=== PATIENT | female | born 1970 | race Caucasian/White ===

== ENCOUNTER 2025-09-14 15:08 | Outpatient (AMB) | payer OTHER, SELFPAY ==
--- NOTE | 2025-09-14 15:23 | A.OFFPC_ITS ---
Vital Signs 09/14/25 15:29 Height 5 ft 2.75 in Weight 199 lb 6 oz BMI 35.6 BP 262/133 H Blood Pressure Location Lt brachial Respiration 14 Pulse 75 Pulse Source Pulse Oximeter Temp 97.0 F Temp Source Temporal Artery Scan Pulse Oximetry (%) 99 Oxygen Delivery Method Room Air Intake Visit Reasons: New Patient Rn On Site Required: No Accompanied by: Self / Same As Patient Allergies amoxicillin Allergy (Mild, Verified 09/14/25 15:27) Rash Medication List - Last Reconciled 09/14/25 by Kvng Martinez MD No Known Home Meds Tobacco use date assessed: 09/14/25 Dental Screening Dental Screen Date: 09/14/25 Did you have a dental visit in the last 12 months?: No Did you have a dental problem in the last 6 months where you did not have access to dental care?: No HPI HPI Comments History of Present Illness Details History of Present Illness The patient is a 54 year old female presenting for a general check-up, as she has not seen a doctor since 2011. She reports feeling anxious about the visit. The patient was found to have a blood pressure of 260/33 mmHg on two repeat measurements, leading to a diagnosis of hypertensive urgency. She confirms experiencing associated symptoms including chest pain, shortness of breath, headaches, and vision changes. The patient has a past medical history of high blood pressure and type 2 diabetes, for which she is not on any treatment. She reports a weight loss of over 150 pounds since these diagnoses were made. 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 She has been experiencing neurological issues, including problems with her legs that necessitate the use of a walking stick, and tingling or burning sensations in her feet, suggestive of diabetic neuropathy. In 2009, the patient attempted suicide and underwent a gastric lavage, for which she believes she was placed under general anesthesia. She denies ever smoking regularly and quit occasional use over 15 years ago. She has a history of binge drinking but now reports consuming only a couple of drinks per year, with her last drink being at Thanksgiving. Medical History: - Hypertension, previously diagnosed. - Type 2 diabetes mellitus, previously d iagnosed and untreated. 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 - Toe fracture in 2018. - History of suicide attempt in 2009. - Acid reflux, managed with [id number] nter omeprazole. - History of alcohol abuse (binge drinki ng). Surgical History: - Gastric lavage under anesthesia follow ing a suicide attempt (2009). Medications: - Omeprazole ([id number]) for acid reflux. - Turmeric for knee pain. Family History: - Father: High blood pressure. - Mother: Ovarian cancer. Diagnostic Results: - Vitals: Blood pressure 260/33 mmHg on two repeat measurements. Social History - Employment: The patient is currently u nemployed. - Substance Use: The patient denies ever smoking regularly and quit occasional smoking over 15 years ago. - Alcohol Use: She has a history of chano e drinking, with the last binge in 2018. - Current Alcohol Use: The patient repor ts she now has a couple of drinks per year, never more than two at a time, with her last drink being one at [facility]. - Weight Management: She has a history o f significant weight loss of over 150 pounds. - Functional Status: The patient uses a walking stick. - Housing: She recently moved to the [facility] and lives with a friend. [facility] Medical History (Updated 09/14/25 @ 15:55 by Kvng Martinez MD) Establishing care with new doctor, encounter for Type 2 diabetes mellitus Hypertensive urgency Social History Housing: Apartment (renting a room) Patient Tobacco Use Status: Never used Tobacco e-Cigarette/Vaping Use: Never Used service: No Current occupational status: unemployed Cognitive needs: Yes (walking stick PRN) Hearing needs: No Vision needs: Yes (Rx glasses) Questionnaire PHQ-9 Over the last 2 weeks, how often have you been bothered by any of the following problems? 1. Little interest or pleasure in doing things: several days 2. Feeling down, depressed, or hopeless: more than half the days 3. Trouble falling or staying asleep, or sleeping too much: several days 4. Feeling tired or having little energy: several days 5. Poor appetite or overeating: not at all 6. Feeling bad about yourself - or that you are a failure or have let yourself or your family down: more than half the days 7. Trouble concentrating on things, such as reading the newspaper or watching television: several days 8. Moving or speaking so slowly that other people could have noticed. Or the opposite - being so fidgety or restless that you have been moving around a lot more than usual: not at all 9. Thoughts that you would be better off or of hurting yourself in some way: not at all Total score: 8 Depression Screening Interpretation: Positive Depression Screening Done: Yes 10866 - PHQ-9 Billing: Yes Source: Developed by Drs. Rasta Crawford, Falguni Brown, Carlitos Verdin and colleagues, with an educational steven from [employer]. Thrive Questionnaire Within the past 12 months, did the food you bought not last and you didn't have the money to get more?: Sometimes True Within the past 12 months, did you worry whether your food would run out before you got money to buy more?: Sometimes True Do you have trouble paying for medicines?: Yes Do you have trouble getting transportation to medical appointments?: Yes Do you have trouble paying your heating and electricity bill?: No Do you have trouble taking care of your child, family member or friend?: No Do you have trouble with day-to-day activities such as bathing, preparing meals, shopping, managing finances, etc.?: No Are you currently unemployed and looking for a job?: Yes Are you interested in more education?: No Please select the resources that you would like help with: Transportation and Job search/training THRIVE Score: 3 AUDIT C Alcohol Use Questionnaire (AUDIT-C) 1. How often do you have a drink containing alcohol?: Monthly or less 2. How many drinks containing alcohol do you have on a typical day when you are drinking?: 1 or 2 3. How often do you have six or more drinks on one occasion?: Never Total Score: 1 Score Reviewed/Action Taken: Yes JUNIE-7 AMB Questionnaire JUNIE-7 Date JUNIE - 7 assessed: 09/14/25 Feeling nervous, anxious, or on edge: 3 = Nearly every day Not being able to stop or control worryin = Nearly every day Worrying too much about different things: 1 = Several days Trouble relaxin = Several days Being so restless that it is hard to sit still: 0 = Not at all Becoming easily annoyed or irritable: 0 = Not at all Feeling afraid as if something awful might happen: 0 = Not at all Total JUNIE-7 score (0-4 normal; 5-9 mild; 10-14 moderate; 15-21 severe): 8 Source: Developed by Drs. Rasta Crawford, Falguni Brown, Carlitos Verdin and colleagues, with an educational steven from [employer]. JUNIE-7 Assessment Billing JUNIE-7 Assessment Tool: JUNIE-7 Assessment 93580 Review of Systems Narrative Review of Systems - Constitutional: Reports anxiety. - Respiratory: Reports shortness of breath. - Neurological: Reports headaches, vision changes, problems with her legs, and tingling or burning in her feet. - Gastrointestinal: Reports acid reflux. - Musculoskeletal: Reports knee pain for which she takes turmeric. - Cardiovascular: Reports chest pain. All systems reviewed & are unremarkable except as reviewed in HPI and above Physical exam (Primary Care) Vital Signs: Last Vital Signs Temp 97.0 F 09/14/25 15:29 Pulse 75 09/14/25 15:29 Resp 14 09/14/25 15:29 BP 262/133 H 09/14/25 15:29 Pulse Ox 99 09/14/25 15:29 Oxygen Delivery Method Room Air 09/14/25 15:29 BMI result Body Mass Index 35.6 Tobacco/Smoking Status: Tobacco use Status Tobacco use date assessed 09/14/25 09/14/25 15:33 Patient Tobacco Use Status Never used Tobacco 09/14/25 15:33 e-Cigarette/Vaping Use Never Used 09/14/25 15:33 PHQ-9: PHQ-9 Score PHQ-9: Total score 8 09/14/25 15:48 Depression Screening Interpretation: Positive Narrative Physical Exam General: +Alert and oriented, Well nourished, No acute distress. Eye: Pupils are equal, round and reactive to light, Intact accommodation, Extraocular movements are intact, Normal conjunctiva, Vision unchanged. HENT: Normocephalic, Atraumatic, Tympanic membranes are clear, Normal hearing, Oral mucosa is moist, No pharyngeal erythema, Ear canals patent. Respiratory: Lungs CTA bilaterally, No wheeze, Respirations are non-labored. Cardiovascular: Regular rate, Regular rhythm, S1 auscultated, S2 auscultated, No murmur, Good pulses equal in all extremities, Normal peripheral perfusion, No edema. Gastrointestinal: Soft, Non-tender, Non-distended, Normal bowel sounds, No organomegaly. Musculoskeletal: Normal range of motion, Normal strength, No tenderness, No swelling, No deformity, Normal gait. Integumentary: Warm, Dry, [place], Intact. Neurologic: Alert, Oriented, Normal sensory, Normal motor function, No focal defects, Cranial Nerves II-XII are grossly intact, Normal deep tendon reflexes. Psychiatric: Cooperative, Appropriate mood & affect, Normal judgment. Coding Level of Care Code New Pt Level 5 (88984) Diagnoses Hypertensive urgency I16.0 Type 2 diabetes mellitus with other specified complication, without long-term current use of insulin E11.69 Diabetes mellitus penitentiary insulin use: without penitentiary use Diabetes mellitus complication status: with other specified complication Establishing care with new doctor, encounter for Z76.89 Additional Codes JUNIE-7 Assessment Billing - JUNIE-7 Assessment Tool: JUNIE-7 Assessment 67491 ([id number]) PHQ-9 - 90857 - PHQ-9 Billing: Yes ([id number]) Assessment & Plan Assessment & Plan (1) Hypertensive urgency: Comment: - The patient's blood pressure is critically elevated at 260/33 mmHg with associated symptoms including chest pain, shortness of breath, headache, and vision changes. - The plan is for immediate transfer to the emergency room for slow, monitored reduction of her blood pressure. - I called the ER to notify them of her impending arrival. - This places her at high risk for a cardiovascular event such as a heart attack or stroke. Code(s): I16.0 - Hypertensive urgency Category: Medical (2) Type 2 diabetes mellitus: Comment: - The patient has a history of type 2 diabetes for which she is not receiving treatment. - She reports tingling and burning in her feet and requires a walking stick, which are highly suggestive of diabetic neuropathy from uncontrolled disease. - I will order comprehensive baseline blood work, including blood counts, electrolytes, glucose, hepatitis screen, HIV, a cholesterol panel, thyroid levels, vitamin D, and a urinalysis. - I will review the results from her ER visit and use them to guide future management. Code(s): E11.9 - Type 2 diabetes mellitus without complications Category: Medical Qualifiers: Diabetes mellitus superintendent terminal insulin use: without superintendent terminal use Diabetes mellitus complication status: with other specified complication Qualified Code(s): E11.69 - Type 2 diabetes mellitus with other specified complication (3) Establishing care with new doctor, encounter for: Comment: - The patient has not had a medical evaluation since 2011. - The plan is to establish care and schedule a follow-up appointment after her discharge from the emergency room to fine-tune her medical management. Code(s): Z76.89 - Persons encountering health services in other specified circumstances Category: Medical Plan: Health Maintenance: - The patient has not had a medical visit since 2011. - Baseline labs will be ordered, including a complete blood count, electrolytes, glucose, hepatitis screen, HIV test, cholesterol panel, urinalysis, thyroid levels, and vitamin D level. - The patient will be rescheduled for a follow-up visit after discharge from the emergency room to establish regular care. Patient was informed and verbally consented to the use of an ambient scribe for clinic note documentation during this visit. Plan The patient was found to have critically elevated blood pressure of 260/33 mmHg on repeat measurements with associated chest pain, shortness of breath, headache, and vision changes, representing a life-threatening condition with hi gh risk of acute end-organ damage (stroke, myocardial infarction), requiring immediate escalation of care and direct referral to the emergency department for monitored blood pressure reduction. I informed the patient that her blood pressure of 260/33 mmHg is dangerously high, classifying this as a hypertensive urgency, and explained the associated risks, including heart attack and stroke. I emphasized the need for immediate transfer to the emergency room for slow, monitored blood pressure reduction, clarifying that aggressive treatment can also be dangerous. We discussed that her neurological symptoms, such as tingling in her feet and leg problems, are likely due to diabetic neuropathy from untreated diabetes. I informed her that baseline labs would be ordered, but the immediate priority is going to the emergency room, which is located right across the [place]. I advised her that we will reschedule her for a proper follow-up appointment after she is cleared from the ER. Orders: Orders Comprehensive Met. Panel Today Z00.00 - Encounter for general adult medical examination without abnormal findings Hemoglobin A1c Today Z00.00 - Encounter for general adult medical examination without abnormal findings Hepatitis A,B,C Profile Today Z00.00 - Encounter for general adult medical examination without abnormal findings TSH reflex Free T4 Today Z00.00 - Encounter for general adult medical examination without abnormal findings Vitamin D 25-OH Total Today Z00.00 - Encounter for general adult medical examination without abnormal findings Complete Blood Count Auto Diff Today Z00.00 - Encounter for general adult medical examination without abnormal findings Lipid Panel Today Z00.00 - Encounter for general adult medical examination without abnormal findings HIV Ab/Ag Today Z00.00 - Encounter for general adult medical examination without abnormal findings Microalbumin, Random (w Creat) Today Z00.00 - Encounter for general adult medical examination without abnormal findings Syphilis Screen Today Z00.00 - Encounter for general adult medical examination without abnormal findings Patient Instructions: - Go to the emergency room immediately. It is located right across the [address] from our office. - Your blood pressure is dangerously high, which puts you at risk for a heart attack or a stroke. - In the emergency room, the medical team will give you medication to lower your blood pressure slowly and safely. - After you are discharged from the emergency room, please call our office to schedule a follow-up visit.
[2025-09-14 15:29] VITALS: BP 262/133; PULSE 75; RESP 14; TEMP 36.1; O2SAT 99; BMI 35.6
== END 2025-09-14 15:47 | disposition home or self-care (01) ==
LOC: HO.HMCHD 15:08
PROVIDERS: PCP Student in an Organized Health Care Education/Training Program
DX: I16.0 Hypertensive urgency (principal); E11.69 Type 2 diabetes mellitus with other specified complication; Z76.89 Persons encountering health services in other specified circumstances

== ENCOUNTER 2025-09-14 15:48 | Emergency (ER) | payer OTHER, SELFPAY ==
--- NOTE | ~2025-09-14 | CT_ITS ---
CLINICAL HISTORY: Hypertension systolic 257. stroke? CT head without contrast Comparison: None Findings: No intracranial mass, midline shift, hydrocephalus, or acute hemorrhage. No CT evidence of acute ischemia. Visualized paranasal sinuses and mastoid air cells normal. Orbits unremarkable. No skull fracture Impression: 1. No acute intracranial abnormalities. This document has been electronically signed by: Jose Gipson MD on 09/14/2025 17:55:42
[2025-09-14 16:10] VITALS: BP 253/147; PULSE 86; RESP 18; TEMP 36.6; O2SAT 99; BMI 35.2
--- NOTE | 2025-09-14 16:13 | ECG_ITS ---
Test Reason : HYPERTENSION Blood Pressure : */* mmHG Vent. Rate : 81 BPM Atrial Rate : 81 BPM P-R Int : 158 ms QRS Dur : 78 ms QT Int : 400 ms P-R-T Axes : 22 -18 104 degrees QTcB Int : 464 ms Normal sinus rhythm Septal infarct , age undetermined T wave abnormality, consider lateral ischemia Abnormal ECG No previous ECGs available Referred By: Osvaldo Acevedo Electronically Signed By: ELEUTERIO GOMEZ MD
--- NOTE | 2025-09-14 16:13 | ED.GENADULT ---
HPI - General Adult General Chief complaint: General Medical Stated complaint: High Blood Pressure Time Seen by Provider: 09/14/25 16:55 History of Present Illness ED Provider: Aurora BOYKIN narrative: The patient is a 54-year-old female who went to a new primary care doctor today to establish a new primary care provider and restart medical care. The patient says that she has not had insurance for many years and therefore she has not had any significant medical treatment or care or evaluations for many years. She says that she has been on blood pressure in the past but this is perhaps as long as 12 - 14 years ago. 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 She has had struggles with a weight. She says that at 1 point her weight was as high as 350 lb. She has lost a lot of weight over several years. She has never been a significant smoker. She has had problems with employment and maintaining housing. She moved to this area several months ago from for live with a friend and try to get back on her feet. She recently established new insurance and she set up the appointment she had with the PCP today a proximally 3 weeks ago. She was not having any particular symptoms of concern when she went to the appointment today. When she got to the appointment she was found to have a very elevated blood pressure and she was sent to the emergency room because of her very high blood pressure. She describes a number of other symptoms that has been chronic including some issues with her gait. These other issues are of years' duration. No no acute complaints of headache, chest pain, shortness of breath, abdominal pain, nausea, vomiting, or any new neurological symptoms. Related Data Home Medications ?Medication ?Instructions ?Recorded ?Confirmed omeprazole 20 mg tablet,delayed 20 mg PO DAILY 09/16/25 09/16/25 release Previous Rx's ?Medication ?Instructions ?Recorded losartan 100 mg tablet 100 mg PO DAILY #30 tabs 09/14/25 metformin 500 mg tablet 500 mg PO BID #60 tabs 09/14/25 gabapentin 100 mg capsule 100 mg PO BID #60 caps 09/16/25 nifedipine 60 mg tablet,extended 60 mg PO DAILY #30 tabs 09/16/25 release Allergies Allergy/AdvReac Type Severity Reaction Status Date / Time amoxicillin Allergy Mild Rash Verified 09/16/25 08:48 Review of Systems Review of Systems: Yes all other systems are reviewed and are negative [facility] Past Medical History Medical History (Updated 09/16/25 @ 09:14 by Kvng Martinez MD) Hypertension CKD stage 3a, GFR 45-59 ml/min Peripheral neuropathy Establishing care with new doctor, encounter for Type 2 diabetes mellitus Hypertensive urgency Social History Social History Housing: Apartment (renting a room) Patient Tobacco Use Status: Never used Tobacco e-Cigarette/Vaping Use: Never Used service: No Current occupational status: unemployed Cognitive needs: Yes (walking stick PRN) Hearing needs: No Vision needs: Yes (Rx glasses) Physical Exam ED Vital Signs: Vital Signs - 24 hr 09/14/25 16:10 09/14/25 16:32 09/14/25 17:32 Temperature 98 F 98.5 F Pulse Rate 86 81 Respiratory Rate 18 13 Blood Pressure 253/147 H 210/149 H 257/134 H Pulse Oximetry 99 99 Oxygen Delivery Method Room Air Room Air 09/14/25 18:31 09/14/25 19:01 Temperature 98.2 F Pulse Rate 73 Respiratory Rate 14 Blood Pressure 229/111 H 223/124 H Pulse Oximetry 99 Oxygen Delivery Method Room Air BMI result Body Mass Index 35.2 Const Other: The patient is a very pleasant 54-year-old woman who was awake and alert. She does not appear in any distress. She does not appear uncomfortable or unwell. HENMT Other: There is a very subtle asymmetry to the face which I only noticed after she told me that she had has a history of right-sided Dior's palsy. The right side of the face is very subtly weaker than the left. This includes the upper face as well as the lower. Eyes Other: Pupils are round equal, conjunctivae are clear, extraocular movements intact. Blinking of the right eye is slightly less robust than on the left eye Neck Neck: Yes normal visual inspection, Yes full ROM, Yes no lymphadenopathy and Yes no JVD Resp Effort & Inspection: normal respiratory effort Auscultation: clear to auscultation bilaterally Cardio Rate: regular rate Rhythm: regular rhythm Heart sounds: S1 normal heart sound present and S2 normal heart sound present GI Other: Abdomen is soft and nontender Skin Other: The skin is dry and unremarkable Neuro Other: The patient is awake and alert with a normal mental status. She has a nontoxic demeanor. There is a very subtle weakness of the right side of the face generally but cranial nerves are otherwise intact. She has normal strength and sensation in her extremities. Extrem Other: There is no calf swelling or tenderness. No asymmetry. No peripheral edema. Course Course Course Narrative: RME: 54 yold female presents to the ED for HTN. Patient sent from PCP for elevated blood pressure. Patient states without htn meds for at least 10 years due to lack of insurance. Patient asympatomtic. patient to be broughto the ED. EkG, labs, and imagni ordered Medications Administered Discontinued Medications Generic Name Dose Route Start Last Admin Trade Name Freq PRN Reason Stop Dose Admin Losartan Potassium 50 mg 09/14/25 17:24 09/14/25 17:32 Losartan Potassium 50 Mg Tablet PO 09/14/25 17:25 50 mg ONCE ONE Administration Protocol Losartan Potassium 50 mg 09/14/25 18:24 09/14/25 18:31 Losartan Potassium 50 Mg Tablet PO 09/14/25 18:25 50 mg ONCE ONE Administration Protocol Metformin HCl 500 mg 09/14/25 20:34 09/14/25 21:12 Metformin Hcl 500 Mg Tablet PO 09/14/25 20:35 500 mg ONCE ONE Administration Medical Decision Making Medical Decision Making MDM Narrative: The patient is a 54-year-old woman with a history of hypertension and type 2 diabetes who has not seen a doctor in many years and has not been taking any treatment for any medical condition for several years. She also has a history of right-sided Dior's palsy a proximally 5 years ago. She had a first-time visit with a new primary care doctor today who was concerned that the patient was very hypertensive in the office with a blood pressure of 260/133. Because of this hypertension the patient was referred to the emergency department. Although the patient describes having some chronic complaints I do not feel that she was complaining of anything acute that would represent an acute process related to her significant hypertension. She is not having any symptoms of a stroke not having any symptoms of chest pain to suggest an acute coronary syndrome. Her mental status is normal. She has no visual complaints The patient has labs today show some renal insufficiency with a creatinine of 1.52. I suspect that this is not process but much more likely to be the result of the patient's chronic untreated high blood pressure and type 2 diabetes. The patient's urinalysis shows proteinuria and glucosuria. No sign of infection. No blood. No ketones. Although her renal function is somewhat impaired her electrolytes are normal. EKG shows normal sinus rhythm. No definite acute ischemic changes. She has a normal troponin. She has no symptoms of an acute coronary syndrome. The patient was hypertensive but otherwise very stable. She was given 50 mg of oral losartan. She was given a 2nd dose an hour later. She was observed. Her blood pressure ultimately came down to 223/124. I think this represents a mild drop in her blood pressure. Given that she has a likely been a significantly hypertensive for a long period of time I do not think that acute lowering of her blood pressure is indicated or necessary. She does not wish to be hospitalized today and I do not feel there is a hypertensive emergency present. Therefore ultimately I will discharge the patient with a a prescription for losartan 100 mg daily. Also metformin 500 mg b.i.d.. She should contact her primary care doctor's office tomorrow morning for prompt follow up to continue management of this asymptomatic uncontrolled hypertension and also make further recommendations regarding type 2 diabetes and other medical conditions. Lab Data 09/14/25 16:41 09/14/25 16:41 Labs: Lab Results 09/14/25 09/14/25 Range/Units 16:41 19:19 WBC 10.5 (4.8-10.8) X10*3/uL RBC 5.19 (4.20-5.50) X10*6/uL Hgb 14.7 (12.0-16.0) g/dl Hct 43.7 (37.0-47.0) % MCV 84.2 (80.0-98.0) fL MCH 28.3 (27.0-33.0) pg MCHC 33.6 (31.0-35.0) g/dl RDW 11.9 (11.0-16.0) % Plt Count 250 (160-400) X10*3/uL MPV 11.0 (9.4-12.3) fL Immature Gran % (Auto) 0.3 (0.0-0.4) % Neut % (Auto) 64.7 (45-73) % Lymph % (Auto) 26.0 (20-40) % Holt % (Auto) 5.2 (2-11) % Eos % (Auto) 3.1 (0-4) % Baso % (Auto) 0.7 (0-2) % Lymph # (Auto) 2.7 (1.2-4.9) X10*3/uL Holt # (Auto) 0.5 (0.1-1.2) X10*3/uL Eos # (Auto) 0.3 (0.0-0.4) X10*3/uL Baso # (Auto) 0.1 (0.0-0.2) X10*3/uL Abs Immat Gran (auto) 0.03 (0.00-0.03) X10*3/uL Absolute Neuts (auto) 6.8 (2.0-8.3) x10*3/uL Absolute Nucleated RBC 0.000 (0.0-0.012) X10*3/uL Nucleated RBC % (auto) 0.0 (0.0-0.2) /100WBC Sodium 137 (135-145) mmol/L Potassium 4.0 (3.3-5.1) mmol/L Chloride 104 (96-108) mmol/L Carbon Dioxide 25 (22-29) mmol/L Anion Gap 12 (12-20) BUN 27 H (9-16) mg/dL Creatinine 1.52 H (0.5-1.4) mg/dL Estim Creat Clear Calc 45.6 Estimated GFR 36 Random Glucose 303 H (60-115) mg/dL Estimat Average Glucose 240 mg/dL Hemoglobin A1c % 10.0 H (<6.0) % Calcium 9.1 (8.4-10.2) mg/dL Total Bilirubin 0.4 (0.0-1.0) mg/dL AST 34 H (5-31) U/L ALT 26 (0-31) U/L Alkaline Phosphatase 74 (39-117) U/L Troponin I High Sens 6.9 (<3.5-17.0) ng/L Total Protein 7.0 (6.5-8.0) g/dL Albumin 3.4 L (3.5-5.0) g/dL TSH 1.90 (0.32-4.0) uIU/mL Urine Color Yellow Urine Appearance Clear Urine pH 7.0 (5.0-9.0) Ur Specific [place] 1.015 (1.005-1.025) Urine Protein 300 (3+) H (Neg-Trace) mg/dL Urine Glucose (UA) 500 H (Negative) mg/dL Urine Ketones Negative (Negative) mg/dL Urine Blood Negative (Negative) Urine Nitrite Negative (Negative) Ur Leukocyte Esterase Negative (Negative) Urine RBC 0-2 (0-2) /HPF Urine WBC 0-5 (0-5) /HPF Ur Squamous Epith Cells 0-2 (0-2) /HPF Urine Bacteria None Seen (None Seen) Hyaline Casts 0-2 (0-2) /LPF Discharge Plan Discharge Clinical Impression: Renal insufficiency Hypertension Qualifiers: Hypertension type: primary hypertension Qualified Code(s): I10 - Essential (primary) hypertension Type 2 diabetes mellitus Qualifiers: Diabetes mellitus detention insulin use: without 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 I have sent a prescription for the medication losartan to the pharmacy here at [facility]. Please chart picker this prescription tomorrow and start taking this medication once a day as prescribed. Also I have sent a prescription for metformin, a medicine for diabetes, which you should take 2 times a day. Please contact your regular doctor's office in the morning to arrange a follow up appointment. Explain that you has been started on medications for your blood pressure and should be checked soon in the office. It is possible that your primary care doctor may wish that you see a kidney doctor (flavoring machine operator) you has been given the contact information for the nephrology office here at [facility]. If you develop any concerning symptoms please return to the emergency room Prescriptions: New losartan 100 mg tablet 100 mg PO DAILY Qty: 30 0RF metformin 500 mg tablet 500 mg PO BID Qty: 60 0RF No Action omeprazole 20 mg tablet,delayed release (DR/EC) 20 mg PO DAILY nifedipine 60 mg tablet extended release 60 mg PO DAILY Qty: 30 0RF gabapentin 100 mg capsule 100 mg PO BID Qty: 60 0RF Referrals: [facility] [Provider Group, Nephrology] Kvng Martinez MD [Primary Care Provider, Internal Medicine] Discharge Date/Time: 09/14/25 21:27 Print Language: Albanian
[2025-09-14 16:32] VITALS: BP 210/149; PULSE 81; RESP 13; TEMP 36.9; O2SAT 99
[2025-09-14 16:45] LABS: MANUAL DIFF FLAG NO
[2025-09-14 16:50] LABS: Hematocrit 43.7 % (37.0-47.0); Hemoglobin 14.7 g/dl (12.0-16.0); Imm Gran Abs Auto 0.03 X10*3/uL (0.00-0.03); Imm Gran Pct Auto 0.3 % (0.0-0.4); Lymphocytes Absolute Auto 2.7 X10*3/uL (1.2-4.9); Mean Corpuscular HGB Conc 33.6 g/dl (31.0-35.0); Mean Corpuscular Hemoglobin 28.3 pg (27.0-33.0); Mean Corpuscular Volume 84.2 fL (80.0-98.0); NRBC Abs Auto 0.000 X10*3/uL (0.0-0.012); NRBC Pct Auto 0.0 /100WBC (0.0-0.2); Platelet Count 250 X10*3/uL (160-400); Red Blood Count 5.19 X10*6/uL (4.20-5.50); White Blood Count 10.5 X10*3/uL (4.8-10.8)
[2025-09-14 17:06] LABS: Alanine Aminotransferase 26 U/L (0-31); Albumin Level 3.4 g/dL (3.5-5.0); Alkaline Phosphatase 74 U/L (39-117); Anion Gap 12 (12-20); Aspartate Amino Transferase 34 U/L (5-31); Blood Urea Nitrogen 27 mg/dL (9-16); Calcium 9.1 mg/dL (8.4-10.2); Carbon Dioxide 25 mmol/L (22-29); Chloride 104 mmol/L (96-108); Creatinine Clr Calc Pharmacy 45.6; Estimated Glomerular Filt Rate 36; Potassium 4.0 mmol/L (3.3-5.1); Sodium 137 mmol/L (135-145); Total Protein 7.0 g/dL (6.5-8.0)
[2025-09-14 17:14] LABS: Troponin-I High Sensitivity 6.9 ng/L (<3.5-17.0)
[2025-09-14 17:32] VITALS: BP 257/134
[2025-09-14 18:31] VITALS: BP 229/111
[2025-09-14 18:37] LABS: Thyroid Stimulating Hormone 1.90 uIU/mL (0.32-4.0)
[2025-09-14 19:01] VITALS: BP 223/124; PULSE 73; RESP 14; TEMP 36.8; O2SAT 99
[2025-09-14 19:48] LABS: Appearance Urine Clear; Glucose Urine UA 500 mg/dL (Negative); PH 7.0 (5.0-9.0); Specific Gravity - Urine 1.015 (1.005-1.025); UMIC TRIGGER UACC YES
== END 2025-09-14 21:27 | disposition home or self-care (01) ==
PROVIDERS: Physician Assistant; Emergency Provider Emergency Medicine; PCP Student in an Organized Health Care Education/Training Program
DX: N28.9 Disorder of kidney and ureter, unspecified (principal); F43.9 Reaction to severe stress, unspecified; E11.69 Type 2 diabetes mellitus with other specified complication; R94.31 Abnormal electrocardiogram [ECG] [EKG]; I10 Essential (primary) hypertension; Z79.899 Other long term (current) drug therapy; Z79.84 Long term (current) use of oral hypoglycemic drugs
CPT/HCPCS: 36415; 70450; 80053; 81001; 83036; 84443; 84484; 85025; 93005; 96127; 99202; 99283; 99284

== ENCOUNTER → 2025-09-14 16:13 | Outpatient (BNV) | payer OTHER, SELFPAY | PROVIDERS: Emergency Provider Emergency Medicine; PCP Student in an Organized Health Care Education/Training Program; Visit Provider Internal Medicine Cardiovascular Disease | DX: R94.31 Abnormal electrocardiogram [ECG] [EKG] (principal); I10 Essential (primary) hypertension | CPT/HCPCS: 93010 ==

== ENCOUNTER → 2025-09-14 16:13 | Outpatient (BNV) | payer OTHER, SELFPAY | PROVIDERS: Emergency Provider Emergency Medicine; PCP Student in an Organized Health Care Education/Training Program; Visit Provider Radiology Diagnostic Radiology | DX: I10 Essential (primary) hypertension (principal) | CPT/HCPCS: 70450 ==

== ENCOUNTER 2025-09-16 08:46 | Outpatient (AMB) | payer OTHER, SELFPAY ==
--- NOTE | 2025-09-16 08:48 | A.OFFPC_ITS ---
Vital Signs 09/16/25 08:50 Height 5 ft 3 in Weight 200 lb 2 oz BMI 35.4 BP 226/140 H Blood Pressure Location Lt brachial Position Sitting Respiration 16 Pulse 76 Pulse Source Pulse Oximeter Temp 96.9 F Temp Source Temporal Artery Scan Pulse Oximetry (%) 98 Oxygen Delivery Method Room Air Intake Visit Reasons: F/U from Appt 09/14/25 Communication Instructor Required: No Accompanied by: Self / Same As Patient Allergies amoxicillin Allergy (Mild, Verified 09/16/25 08:48) Rash Medication List - Last Reconciled 09/16/25 by Kvng Martinez MD losartan 100 mg PO DAILY metformin 500 mg PO BID omeprazole 20 mg PO DAILY Tobacco use date assessed: 09/14/25 Dental Screening Dental Screen Date: 09/14/25 HPI HPI Comments History of Present Illness Details History of Present Illness The patient is a 54 year old female presenting for follow-up of uncontrolled hypertension and poorly controlled type 2 diabetes. Her blood pressure remains significantly elevated following a recent emergency room visit, where she was started on losartan 100 mg and metformin 500 mg twice daily. She has been adherent to these new medications. Her A1c is 10, indicating very poorly controlled diabetes. She reports neurological symptoms including pain upon walking and tingling in her toes, which she notes has improved slightly since starting metformin. Lab work from the emergency department revealed stage 3A chronic kidney disease with a creatinine of 1.52, which is understood to be non-reversible and likely secondary to uncontrolled hypertension and diabetes. Her thyroid function was noted to be good based on the same labs. Medical History: - Hypertension - Type 2 Diabetes Mellitus - Stage 3A Chronic Kidney Disease - Peripheral neuropathy Medications: - Losartan 100 mg for hypertension - Metformin 500 mg twice a day for diabe shaka Diagnostic Results: - Labs: Hemoglobin A1c is 10%. - Labs: Creatinine is 1.52 mg/dL. - Labs: Thyroid function tests are madeline l. Social History - Financial concerns: The patient expres sed concerns about her ability to afford a blood pressure cuff for home monitoring. - Diet: Current diet is inadequate for d iabetes control, requiring significant changes including the elimination of sweets and carbohydrates. [facility] Medical History (Updated 09/16/25 @ 09:14 by Kvng Martinez MD) Hypertension CKD stage 3a, GFR 45-59 ml/min Peripheral neuropathy Establishing care with new doctor, encounter for Type 2 diabetes mellitus Hypertensive urgency Social History Housing: Apartment (renting a room) Patient Tobacco Use Status: Never used Tobacco e-Cigarette/Vaping Use: Never Used service: No Current occupational status: unemployed Cognitive needs: Yes (walking stick PRN) Hearing needs: No Vision needs: Yes (Rx glasses) Questionnaire AUDIT C Alcohol Use Questionnaire (AUDIT-C) 1. How often do you have a drink containing alcohol?: Monthly or less 2. How many drinks containing alcohol do you have on a typical day when you are drinking?: 1 or 2 3. How often do you have six or more drinks on one occasion?: Never Total Score: 1 JUNIE-7 AMB Questionnaire JUNIE-7 Date JUNIE - 7 assessed: 09/14/25 Source: Developed by Drs. Rasta Crawford, Falguni Brown, Carlitos Verdin and colleagues, with an educational steven from [employer]. Review of Systems Narrative Review of Systems - General: Reports nervousness. - Neurological: Reports pain in her legs with walking and tingling in her toes, noting the tingling has improved since starting metformin. - Cardiovascular: Denies chest pain. - Respiratory: Denies shortness of breath. All systems reviewed & are unremarkable except as reviewed in HPI and above Physical exam (Primary Care) Vital Signs: Last Vital Signs Temp 96.9 F 09/16/25 08:50 Pulse 76 09/16/25 08:50 Resp 16 09/16/25 08:50 BP 226/140 H 09/16/25 08:50 Pulse Ox 98 09/16/25 08:50 Oxygen Delivery Method Room Air 09/16/25 08:50 BMI result Body Mass Index 35.4 Tobacco/Smoking Status: Tobacco use Status Tobacco use date assessed 09/14/25 09/16/25 08:50 Patient Tobacco Use Status Never used Tobacco 09/16/25 08:50 e-Cigarette/Vaping Use Never Used 09/16/25 08:50 Narrative Physical Exam General: +Alert and oriented, Well nourished, No acute distress. Eye: Pupils are equal, round and reactive to light, Intact accommodation, Extraocular movements are intact, Normal conjunctiva, Vision unchanged. HENT: Normocephalic, Atraumatic, Tympanic membranes are clear, Normal hearing, Oral mucosa is moist, No pharyngeal erythema, Ear canals patent. Respiratory: Lungs CTA bilaterally, No wheeze, Respirations are non-labored. Cardiovascular: Regular rate, Regular rhythm, S1 auscultated, S2 auscultated, No murmur, Good pulses equal in all extremities, Normal peripheral perfusion, No edema. Gastrointestinal: Soft, Non-tender, Non-distended, Normal bowel sounds, No organomegaly. Musculoskeletal: Normal range of motion, Normal strength, No tenderness, No swelling, No deformity, Normal gait. Integumentary: Warm, Dry, [place], Intact. Neurologic: Alert, Oriented, Normal sensory, Normal motor function, No focal defects, Cranial Nerves II-XII are grossly intact, Normal deep tendon reflexes. Reports tingling in toes and pain when walking, consistent with peripheral neuropathy. Psychiatric: Cooperative, Appropriate mood & affect, Normal judgment. 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 - She is instructed to obtain a blood pressure cuff to monitor her pressures daily, one to two hours after taking her morning medications. - She will be seen weekly in the clinic for blood pressure checks until her levels are controlled. - She was advised to go to the emergency room for symptoms such as headaches, chest pain, or shortness of breath. - If she feels lightheaded from the medication, she can split the nifedipine pill in half. Code(s): I10 - Essential (primary) hypertension Category: Medical Qualifiers: Hypertension type: primary hypertension Qualified Code(s): I10 - Essential (primary) hypertension (2) Type 2 diabetes mellitus: Comment: - With an A1c of 10, her diabetes is very poorly controlled. - She will continue metformin 500 mg twice daily. - The importance of significant dietary changes, specifically eliminating sweets and carbohydrates, was heavily emphasized. - Her glycemic control will be monitored over the next three months. 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 - A prescription for gabapentin 100 mg twice daily will be started for this nerve pain. - She was counseled on potential side effects like drowsiness and dizziness and advised she can reduce the dose if needed. Code(s): G62.9 - Polyneuropathy, unspecified Category: Medical Qualifiers: Peripheral neuropathy type: polyneuropathy, unspecified Qualified Code(s): G62.9 - Polyneuropathy, unspecified (4) CKD stage 3a, GFR 45-59 ml/min: Comment: - This condition, with a creatinine of 1.52, is likely secondary to uncontrolled hypertension and diabetes and is not reversible. - The immediate plan is to aggressively control her blood pressure and blood sugar to prevent further kidney damage. - A referral to a irrigationist designer is deferred at this time as the primary focus is on medical management in the primary care setting. Code(s): N18.31 - Chronic kidney disease, stage 3a Category: Medical Plan: Health Maintenance: - Labs Ordered: A comprehensive panel was ordered including cholesterol, urinalysis, vitamin D level, and screening for hepatitis, HIV, and syphilis. - Diet Counseling: The patient was strongly advised to make significant dietary changes, specifically to eliminate sweets and carbohydrates to manage her diabetes. Patient was informed and verbally consented to the use of an ambient scribe for clinic note documentation during this visit. Plan I discussed with the patient that her blood pressure is at an unsafely high level, which poses a significant risk for stroke. I explained that we need to be aggressive with treatment, which will involve weekly follow-up visits until her blood pressure is controlled. I informed her that her A1c of 10% indicates very poorly controlled diabetes, and explained the critical need for immediate and significant dietary changes, including avoiding sweets and carbohydrates. I also explained the diagnosis of stage 3A chronic kidney disease, noting that it is not reversible and is caused by her uncontrolled blood pressure and diabetes. I outlined the treatment plan, including the addition of nifedipine for blood pressure and the initiation of gabapentin for her nerve pain, and reviewed the potential side effects of these new medications. I instructed her to get new labs drawn today, including cholesterol and infectious disease screenings, which we will review next week. Return precautions were stressed, specifically advising her to go to the emergency room for any signs of stroke such as headaches, chest pain, or shortness of breath. Medications: New nifedipine ER 60 mg PO DAILY 30 tabs 0RF gabapentin 100 mg PO BID 60 caps 0RF Patient Instructions: - Continue taking your losartan 100 mg and metformin 500 mg twice daily as prescribed. - Start taking the new medication, nifedipine 60 mg, every morning for your blood pressure. - Start taking the new medication, gabapentin 100 mg twice a day, for the nerve pain in your feet. - You need to get a blood pressure cuff and check your blood pressure every morning, about one to two hours after you take your pills. - It is very important to change your diet. You must stop eating sweet foods and reduce carbohydrates like bread, pasta, and rice. - Go to the lab today to have your blood drawn for the tests that were ordered. - You must come back to the clinic in one week for a follow-up appointment. - Go to the emergency room immediately if you start having headaches, chest p ain, or shortness of breath, as your blood pressure is dangerously high. - If the nifedipine makes you feel too lightheaded or dizzy, you can cut the pill in half.
[2025-09-16 08:50] VITALS: BP 226/140; PULSE 76; RESP 16; TEMP 36.1; O2SAT 98; BMI 35.4
== END 2025-09-16 09:03 | disposition home or self-care (01) ==
LOC: HO.HMCHD 08:47
PROVIDERS: PCP Student in an Organized Health Care Education/Training Program; Visit Provider Student in an Organized Health Care Education/Training Program
DX: I10 Essential (primary) hypertension (principal); E11.69 Type 2 diabetes mellitus with other specified complication; G62.9 Polyneuropathy, unspecified; N18.31 Chronic kidney disease, stage 3a

== ENCOUNTER 2025-09-16 08:46 | Outpatient (REF) | payer OTHER, SELFPAY ==
[2025-09-16 10:47] LABS: Cholesterol 217 mg/dL (<200); HDL Cholesterol 37 mg/dL (>40); Triglycerides 174 mg/dL (<150)
[2025-09-16 10:50] LABS: Syphilis Screen Nonreactive (Nonreactive)
[2025-09-16 10:51] LABS: HBS Num1 0.00 mIU/mL (0-7.99); HBc Num1 0.08 S/CO (0.00-0.79); HBsAGNum1 0.28 S/CO (0.00-0.99); HIV Num 1 0.07 S/CO (0.00-0.99); Hepatitis A Antibody IgM 0.18 Index (0-0.79); Hepatitis B Surface Antigen Negative (Negative); ~HepC Num1 0.13 S/CO (0.00-0.79); ~Hepatitis A Antibody IgM Nonreactive (Nonreactive); ~Hepatitis B Surface Antibody NONREACTIVE (Nonreactive); ~Hepatitis C Antibody Nonreactive (Nonreactive)
[2025-09-16 11:12] LABS: Microalbum/Creatinine Ratio Ur 799.5 ug/mg cr (<30)
== END 2025-09-16 08:47 | disposition home or self-care (01) ==
LOC: HO.LAB 08:46
PROVIDERS: PCP Student in an Organized Health Care Education/Training Program; Visit Provider Student in an Organized Health Care Education/Training Program
DX: Z00.00 Encounter for general adult medical examination without abnormal findings (principal); E11.22 Type 2 diabetes mellitus with diabetic chronic kidney disease; I12.9 Hypertensive chronic kidney disease with stage 1 through stage 4 chronic kidney disease, or unspecified chronic kidney disease; N18.31 Chronic kidney disease, stage 3a; G62.9 Polyneuropathy, unspecified; E11.69 Type 2 diabetes mellitus with other specified complication
CPT/HCPCS: 36415; 80061; 82043; 82306; 82570; 86704; 86706; 86709; 86780; 86803; 87340; 87389; 99212

== ENCOUNTER 2025-09-23 07:56 | Outpatient (AMB) | payer OTHER, SELFPAY ==
[2025-09-23 07:59] VITALS: BP 181/100; PULSE 88; TEMP 36.3; O2SAT 99; BMI 35.4
--- NOTE | 2025-09-23 07:59 | A.OFFPC_ITS ---
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 Required: No Accompanied by: Friend Allergies amoxicillin Allergy (Mild, Verified 09/23/25 07:59) Rash Medication List - Last Reconciled 09/23/25 by Kvng Martinez MD gabapentin 100 mg PO BID losartan 100 mg PO DAILY metformin 500 mg PO BID omeprazole 20 mg PO DAILY Tobacco use date assessed: 09/23/25 Dental Screening Dental Screen Date: 09/23/25 Did you have a dental visit in the last 12 months?: No Did you have a dental problem in the last 6 months where you did not have access to dental care?: No HPI HPI Comments History of Present Illness Details History of Present Illness The patient is a 54 year old female presenting for chronic disease management. She has a history of dangerously high blood pressure, with initial readings in the 260s, which has now improved to the 130s on nifedipine 60 mg and losartan 100 mg. The patient has type 2 diabetes, for which she recently started metformin 500 mg twice daily. Her most recent A1c was 10, and she has developed stage 3B kidney disease, which is thought to be a complication of either her uncontrolled diabetes or hypertension. She also has associated neuropathy, which is being managed effectively with gabapentin 100 mg twice daily. Her lab work revealed hyperlipidemia with a total cholesterol of 217, LDL of 146, and triglycerides of 174. The patient also has a history of acid reflux managed with omeprazole 20 mg and a vitamin D level of 20, indicating a deficiency. The patient reports battling anxiety and depression daily, which she attributes to unemployment and her medical issues. 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 She is in the process of seeking a therapist. Medical History: - Hypertension - Type 2 Diabetes Mellitus - Hyperlipidemia - Neuropathy - Acid reflux - Stage 3B kidney disease - Anxiety - Depression - Vitamin D deficiency Medications: - Nifedipine 60 mg for hypertension - Losartan 100 mg for hypertension - Metformin 500 mg twice a day for diabe shaka - Gabapentin 100 mg twice a day for neur opathy - Omeprazole 20 mg for acid reflux Diagnostic Results: - A1c: 10 - Vitamin D: 20 - Total cholesterol: 217 - LDL cholesterol: 146 - HDL cholesterol: 37 - Triglycerides: 174 Social History - Employment: The patient is unemployed, which contributes to her anxiety. - Functional status: Reports social isol ation, sometimes not leaving her bed for days. 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 - Transportation: The patient has diffic ulty with transportation and needs a PT- 1 form for [facility] to get to doctor's appointments. - Nutrition: Advised to avoid carbohydra shaka, fats, processed foods and high cholesterol foods. - Exercise: Advised to increase activity and walking. [facility] Medical History (Updated 09/23/25 @ 08:45 by Kvng Martinez MD) GERD without esophagitis Mixed hyperlipidemia Vitamin D deficiency Depression with anxiety Hypertension CKD stage 3a, GFR 45-59 ml/min Peripheral neuropathy Establishing care with new doctor, encounter for Type 2 diabetes mellitus Hypertensive urgency Family History (Updated 09/23/25 @ 08:10 by Cat Emery MA) Mother No problems noted. Father No problems noted. Social History Housing: Apartment (renting a room) Patient Tobacco Use Status: Never used Tobacco e-Cigarette/Vaping Use: Never Used service: No Current occupational status: unemployed Cognitive needs: Yes (walking stick PRN) Hearing needs: No Vision needs: Yes (Rx glasses) Questionnaire JUNIE-7 AMB Questionnaire JUNIE-7 Date JUNIE - 7 assessed: 09/14/25 Source: Developed by Drs. Rasta Crawford, Falguni Brown, Carlitos Verdin and colleagues, with an educational steven from [email or web address]. Review of Systems Narrative Review of Systems - Neurological: Denies lightheadedness, wooziness, or drowsiness. - General: Reports feeling heavy at times. - Psychiatric: Reports feeling anxious most of the time and battling depression daily, with occasional days of sleeping all day. All systems reviewed & are unremarkable except as reviewed in HPI and above Physical exam (Primary Care) Vital Signs: Last Vital Signs Temp 97.3 F 09/23/25 07:59 Pulse 88 09/23/25 07:59 BP 181/100 H 09/23/25 07:59 Pulse Ox 99 09/23/25 07:59 Oxygen Delivery Method Room Air 09/23/25 07:59 Care Plan Goal for BP management: Remains elevated but improved Next steps: Add nifedipine 30mg for a total of 90 BMI result Body Mass Index 35.4 Tobacco/Smoking Status: Tobacco use Status Tobacco use date assessed 09/23/25 09/23/25 08:00 Patient Tobacco Use Status Never used Tobacco 09/23/25 08:00 e-Cigarette/Vaping Use Never Used 09/23/25 08:00 Narrative Physical Exam General: +Alert and oriented, Well nourished, No acute distress. Eye: Pupils are equal, round and reactive to light, Intact accommodation, Extraocular movements are intact, Normal conjunctiva, Vision unchanged. HENT: Normocephalic, Atraumatic, Tympanic membranes are clear, Normal hearing, Oral mucosa is moist, No pharyngeal erythema, Ear canals patent. Respiratory: Lungs CTA bilaterally, No wheeze, Respirations are non-labored. Cardiovascular: Regular rate, Regular rhythm, S1 auscultated, S2 auscultated, No murmur, Good pulses equal in all extremities, Normal peripheral perfusion, No edema. Gastrointestinal: Soft, Non-tender, Non-distended, Normal bowel sounds, No organomegaly. Musculoskeletal: Normal range of motion, Normal strength, No tenderness, No swelling, No deformity, Normal gait. Integumentary: Warm, Dry, [place], Intact. Neurologic: Alert, Oriented, Normal sensory, Normal motor function, No focal defects, Cranial Nerves II-XII are grossly intact, Normal deep tendon reflexes. Psychiatric: Cooperative, Appropriate mood & affect, Normal judgment. Coding Level of Care Code Est Pt Level 5 (63800) Add On Problem Visit Only Diagnoses Primary hypertension I10 Hypertension type: primary hypertension Type 2 diabetes mellitus with stage 3b chronic kidney disease, without long-term current use of insulin E11.22; N18.32 Diabetes mellitus buttermaker continuous churn insulin use: without buttermaker continuous churn use Diabetes mellitus complication status: with kidney complications Diabetes mellitus complication detail: with chronic kidney disease Chronic kidney disease stage: stage 3 (moderate) Chronic kidney disease stage 3 subtype: stage 3b (GFR 30-44) Mixed hyperlipidemia E78.2 CKD stage 3a, GFR 45-59 ml/min N18.31 Depression with anxiety F41.8 Peripheral polyneuropathy G62.9 Peripheral neuropathy type: polyneuropathy, unspecified Vitamin D deficiency E55.9 GERD without esophagitis K21.9 Assessment & Plan Assessment & Plan (1) Hypertension: Comment: - The patient's blood pressure has significantly improved from the 260s to the 130s, but the goal is <130. - The plan is to increase nifedipine from 60 mg to 90 mg and continue losartan 100 mg. - The patient was advised to take both medications in the morning. - If pressures remain elevated, a third medication will be considered. - A prescription for a home blood pressure cuff will be provided. Code(s): I10 - Essential (primary) hypertension Category: Medical Qualifiers: Hypertension type: primary hypertension Qualified Code(s): I10 - Essential (primary) hypertension (2) Type 2 diabetes mellitus: Comment: - The A1c is high at 10, and there is evidence of kidney involvement. - The plan is to continue metformin 500 mg twice daily. - Diet and lifestyle modifications are emphasized. - A referral to a band sewer is deferred to first assess the impact of these changes. - If the A1c remains high after 3 months, a referral to endocrinology and initiation of injectable medications will be considered. - The A1c will be rechecked in mid-November. Code(s): E11.9 - Type 2 diabetes mellitus without complications Category: Medical Qualifiers: Diabetes mellitus buttermaker continuous churn insulin use: without prison use Diabetes mellitus complication status: with kidney complications Diabetes mellitus complication detail: with chronic kidney disease Chronic kidney disease stage: stage 3 (moderate) Chronic kidney disease stage 3 subtype: stage 3b (GFR 30-44) Qualified Code(s): E11.22 - Type 2 diabetes mellitus with diabetic chronic kidney disease; N18.32 - Chronic kidney disease, stage 3b (3) Mixed hyperlipidemia: Comment: - The patient has elevated total cholesterol (217), LDL (146), and triglycerides (174), placing her at high ASCVD risk (estimated 25-30%). - The plan is to start atorvastatin 40 mg nightly. - The patient was counseled on the potential side effect of muscle pain. Code(s): E78.2 - Mixed hyperlipidemia Category: Medical (4) CKD stage 3a, GFR 45-59 ml/min: Comment: - This condition, with a creatinine of 1.52, is likely secondary to uncontrolled hypertension and diabetes and is not reversible. - The immediate plan is to aggressively control her blood pressure and blood sugar to prevent further kidney damage. - A referral to a porcelain slusher is deferred at this time as the primary focus is on medical management in the primary care setting. Code(s): N18.31 - Chronic kidney disease, stage 3a Category: Medical (5) Depression with anxiety: Comment: - The patient reports significant symptoms related to her health and unemployment. - The plan is to start sertraline 25 mg daily. - She was counseled that it may take 6-8 weeks for full effect. - A referral to a psychiatrist will also be sent. Code(s): F41.8 - Other specified anxiety disorders Category: Medical (6) Peripheral neuropathy: Comment: - The patient reports her neuropathy symptoms are well-controlled. - The plan is to continue gabapentin 100 mg twice daily. Code(s): G62.9 - Polyneuropathy, unspecified Category: Medical Qualifiers: Peripheral neuropathy type: polyneuropathy, unspecified Qualified Code(s): G62.9 - Polyneuropathy, unspecified (7) Vitamin D deficiency: Comment: - Laboratory results show a vitamin D level of 20. - The plan is to prescribe vitamin D supplementation once a week for 12 weeks. Code(s): E55.9 - Vitamin D deficiency, unspecified Category: Medical (8) GERD without esophagitis: Comment: - The plan is to continue omeprazole 20 mg as needed. Code(s): K21.9 - Gastro-esophageal reflux disease without esophagitis Category: Medical Plan: Health Maintenance: - Influenza vaccination: Administered during the current visit. - Diet and lifestyle: The patient was counseled on dietary modifications for diabetes and hyperlipidemia, including avoiding carbohydrates, fats, processed foods, and sugar. - Exercise: The patient was encouraged to increase her physical activity, including walking. - Cardiovascular disease risk: The patient has a high ASCVD risk score, estimated at 25-30%, due to hypertension, diabetes, and hyperlipidemia. Patient was informed and verbally consented to the use of an ambient scribe for clinic note documentation during this visit. Plan I discussed with the patient her multiple chronic conditions, including the significant improvement in her hypertension, but stressed the need to reach a goal of <130. We reviewed the plan to increase her nifedipine to 90mg. I explained that her high A1c of 10 has likely contributed to stage 3B kidney disease and emphasized the critical importance of dietary changes. We will hold off on a band sewer referral for now and re-evaluate in 3 months, with a possible referral to an slab lifting supervisor if her A1c remains elevated. I explained her high cholesterol levels and high ASCVD risk, and we decided to start atorvastatin 40mg nightly after discussing the risk of muscle pain. The patient also voiced concerns about anxiety and depression, and I prescribed sertraline 25mg, explaining that it can take 6-8 weeks to work, and offered a psychiatry referral. We also discussed her vitamin D deficiency and started weekly supplementation. I provided a script for a home BP cuff. Lastly, we administered a flu shot. The plan is to follow up in 2 weeks to assess her BP response. Orders: Orders Influenza [id number] Immunization Today Z23 - Encounter for immunization Referrals Psychiatry Referral F41.8 - Other specified anxiety disorders Medications: New sertraline 25 mg PO DAILY 90 tabs 0RF cholecalciferol (vitamin D3) 1,250 mcg PO QWEEK 12 tabs 0RF 12 weeks E55.9 - Vitamin D deficiency, unspecified nifedipine ER 90 mg PO DAILY 14 tabs 0RF atorvastatin (Lipitor) 40 mg PO BEDTIME 90 tabs 0RF [Blood Pressure] As directed 1 ea 0RF Blood Pressure Monitoring I10 - Essential (primary) hypertension, I16.0 - Hypertensive urgency Fluarix [id number] (PF) (flu vac ts 2024-(6mos up)-PF) 0.5 mL IM ONCE 0.5 mL 0RF NS Z23 - Encounter for immunization Discontinued nifedipine ER Discontinued Reason: Doctor's Order 60 mg PO DAILY 30 tabs 0RF Patient Instructions: - Take nifedipine 90 mg once a day. I am sending a new prescription for this. You can throw away your old 60 mg pills once you nut picker the new ones. - You can take both your blood pressure pills, losartan and nifedipine, together in the morning. - Start taking atorvastatin 40 mg every night for your high cholesterol. Let us know if you experience muscle pain or cramps. - Start taking sertraline 25 mg once a day for anxiety and depression. Please be aware that it may take 6 to 8 weeks to feel the full effect. - Take one vitamin D capsule once a week for the next 12 weeks for your low vitamin D levels. - Continue taking metformin, gabapentin, and omeprazole as you have been. - I have provided you with a prescription for a home blood pressure monitor. Please check with your insurance company to see which brands they cover, then take the prescription to the pharmacy. - It is very important to make changes to your diet. Avoid foods high in carbs (like bread, rice, pasta), fats, cholesterol, and sugar. The website diabetes.org has helpful information. - To request medical transportation, you need to find the PT-1 form online from [employer] [facility], fill it out, and then bring it to our office for a signature. - We have scheduled your next appointment in two weeks to check on your blood pressure.
== END 2025-09-23 08:42 | disposition home or self-care (01) ==
LOC: HO.HMCHD 07:56
PROVIDERS: PCP Student in an Organized Health Care Education/Training Program; Visit Provider Student in an Organized Health Care Education/Training Program
DX: E11.22 Type 2 diabetes mellitus with diabetic chronic kidney disease (principal); N18.32 Chronic kidney disease, stage 3b; I10 Essential (primary) hypertension; E78.2 Mixed hyperlipidemia; G62.9 Polyneuropathy, unspecified; E55.9 Vitamin D deficiency, unspecified; K21.9 Gastro-esophageal reflux disease without esophagitis; Z23 Encounter for immunization

== ENCOUNTER → 2025-09-23 07:56 | Outpatient (BNVA) | payer OTHER, SELFPAY | PROVIDERS: PCP Student in an Organized Health Care Education/Training Program; Visit Provider Student in an Organized Health Care Education/Training Program | DX: I12.9 Hypertensive chronic kidney disease with stage 1 through stage 4 chronic kidney disease, or unspecified chronic kidney disease (principal); E11.22 Type 2 diabetes mellitus with diabetic chronic kidney disease; E11.40 Type 2 diabetes mellitus with diabetic neuropathy, unspecified; N18.32 Chronic kidney disease, stage 3b; E78.2 Mixed hyperlipidemia; F41.8 Other specified anxiety disorders; E55.9 Vitamin D deficiency, unspecified; K21.9 Gastro-esophageal reflux disease without esophagitis; Z23 Encounter for immunization; Z79.84 Long term (current) use of oral hypoglycemic drugs | CPT/HCPCS: 90471; 90656; 99212 ==